=== PATIENT | female | born 1955 | race Caucasian/White ===

== ENCOUNTER 2018-12-30 07:29 | Day surgery (SDC) | payer MEDICAID ==
[2018-12-30] VITALS (11 sets, daily range): BP systolic 107–141; BP diastolic 48–99
[~2018-12-30] VITALS: Ht 172.7 cm; Wt 101.4 kg
[~2018-12-30 07:29] MED LIST: ALBU18HF2 INH; ASPI-845 PO; CLOP75TA33 PO; COMIN IH; DIAZ5TAB PO; DIAZ5TAB4 PO; DILT180C53; FLUO20CA PO; GUAI600T45 PO; HYDR-4353 PO; ISOS60TA4 PO; LISI-600 PO; NITR0.4T SL; PROC5TAB56 PO; SIMV80TA2 PO; SODI104S3 NS; SUMA50TA17 PO; ZOLP5TAB2 PO
[2018-12-30] MEDS ORDERED: diphenhydrAMINE 25mg capsule PO PRN (07:55)
[2018-12-30] MEDS ORDERED: sod bicarbonate 150mEq in D5W 1,150 ML IV ONE (07:55)
[2018-12-30] MEDS ORDERED: METH500T6 PO (08:08)
[2018-12-30] MEDS ORDERED: LURA40TA3 PO (08:08)
[2018-12-30] MEDS ORDERED: ATOR-2 PO (08:08)
[2018-12-30] MEDS ORDERED: FLUT16SP2 BOTHNARES (08:09)
[2018-12-30] MEDS ORDERED: normal saline 1000ml 1,000 ML IV SCH (08:15)
[2018-12-30] MEDS ORDERED: diazepam 5mg tablet PO PRN (08:15)
[2018-12-30] MEDS ORDERED: midazolam 2 mg/2 ml injection ONE ×5 (08:58→10:17)
[2018-12-30] MEDS ORDERED: fentaNYL/PF 50MCG/1 ML 2ML syringe ONE (08:58)
[2018-12-30] MEDS ORDERED: LIDOcaine 1% (10mg/ml)w/preservative injection 20ml MDV ONE (08:59)
[2018-12-30] MEDS ORDERED: iohexol 350 MG/ML 50ML vial IV ONE (08:59)
[2018-12-30] MEDS ORDERED: iohexol 350MG/ML 100ml bottle IV ONE ×2 (08:59→10:02)
[2018-12-30 09:05] LABS: BASOPHILS % (AUTO) 0.3 % (0-1); EOSINOPHILS # (AUTO) 0.2 X10'3 (0-0.9); EOSINOPHILS % (AUTO) 2.2 % (0-6); HEMATOCRIT 44.6 % (35.0-45.0); LYMPHOCYTES # (AUTO) 2.6 X10'3 (1.1-4.8); LYMPHOCYTES % (AUTO) 23.7 % (21-51); MEAN CORPUSCULAR HEMOGLOBIN 24.5 PG (27.0-31.0); MEAN CORPUSCULAR HGB CONC 31.5 g/dL (33.0-36.5); MEAN PLATELET VOLUME 9.6 FL (7.4-10.4); MONOCYTES # (AUTO) 0.7 X10'3 (0-0.9); MONOCYTES % (AUTO) 6.3 % (2-12); NEUTROPHILS # (AUTO) 7.5 X10'3 (1.8-7.7); NEUTROPHILS % (AUTO) 67.5 % (42-75); PLATELET COUNT 251 X10'3 (140-440); RED BLOOD COUNT 5.72 X10'6 (4.20-5.60); RED CELL DISTRIBUTION WIDTH 18.3 % (11.5-14.5); WHITE BLOOD COUNT 11.1 X10'3 (4.5-11.0)
[2018-12-30 09:19] LABS: PROTHROMBIN TIME 10.3 SECONDS (9.0-12.0)
[2018-12-30 09:20] LABS: ANION GAP 10 (8-16); BLOOD UREA NITROGEN 16 MG/DL (7-18); BUN/CREATININE RATIO 18.8 (6.6-38.0); CALCIUM 10.1 MG/DL (8.5-10.1); CHLORIDE 100 MMOL/L (99-107); CREATININE 0.85 MG/DL (0.40-0.90); GLUCOSE 110 MG/DL (70-104); MAGNESIUM 1.7 MG/DL (1.5-2.4); POTASSIUM 4.1 MMOL/L (3.5-5.1); SODIUM 140 MMOL/L (135-145); TOTAL CARBON DIOXIDE 30.2 MMOL/L (24-32); eGFR 68 ML/MIN
[2018-12-30] MEDS ORDERED: heparin 1,000unit/ml 10ml vial 10 ML ONE (09:58)
[2018-12-30] MEDS ORDERED: HYDROmorphone 1 mg/ml syringe ONE (10:20)
[2018-12-30] MEDS ORDERED: nitroGLYCERIN-Tridil 50MG/D5W 250 ML IV ONE (10:26)
[2018-12-30] MEDS ORDERED: nitroGLYCERIN 0.4mg SUBLingual tab SL ONE (10:26)
[2018-12-30] MEDS ORDERED: HYDROcodone/acetaminophen 5mg/325mg tablet PO PRN (11:30)
[2018-12-30] MEDS ORDERED: aspirin 81mg tab.chew PO ONE (11:37)
[2018-12-30] MEDS: HYDROcodone/acetaminophen 10/325mg tab PO PRN ×2 (11:41→15:29)
--- NOTE | 2018-12-30 16:15 | NUR ---
pt ambulated to bedside commode, voided. pt ambulated floor, denies cp, denies sob. will continue to monitor.
--- NOTE | 2018-12-30 16:32 | NUR ---
contacted MD, reported pt states, "my chest pain is back to normal, I always have some but this feels normal". pt vs stable as charted. site is stable. pt ambulated and denies cp and sob. new orders to dc pt at 1700, per MD.
[2018-12-30] MEDS ORDERED: enoxaparin 30mg/0.3ml syringe SUBCUT SCH (20:00)
[2018-12-30] MEDS ORDERED: docusate sod 100mg capsule PO SCH (20:00)
[2018-12-31] MEDS ORDERED: clopidogrel 75mg tablet PO SCH (08:00)
[2018-12-31] MEDS ORDERED: aspirin 81mg tab.chew PO SCH (08:30)
== END 2018-12-30 17:20 | disposition home or self-care (01) ==
LOC: SSTAY O 07:29
PROVIDERS: ATTEND Internal Medicine Cardiovascular Disease
DX: I25.118 Atherosclerotic heart disease of native coronary artery with other forms of angina pectoris (principal); I10 Essential (primary) hypertension; E78.5 Hyperlipidemia, unspecified; E11.9 Type 2 diabetes mellitus without complications; I25.2 Old myocardial infarction; E66.9 Obesity, unspecified; G47.33 Obstructive sleep apnea (adult) (pediatric); J42 Unspecified chronic bronchitis; K21.9 Gastro-esophageal reflux disease without esophagitis; M19.90 Unspecified osteoarthritis, unspecified site; M79.7 Fibromyalgia; M47.819 Spondylosis without myelopathy or radiculopathy, site unspecified; F32.9 Major depressive disorder, single episode, unspecified; F41.8 Other specified anxiety disorders; G43.909 Migraine, unspecified, not intractable, without status migrainosus; Z86.69 Personal history of other diseases of the nervous system and sense organs; Z87.828 Personal history of other (healed) physical injury and trauma; Z86.74 Personal history of sudden cardiac arrest; Z87.891 Personal history of nicotine dependence; Z68.34 Body mass index [BMI] 34.0-34.9, adult; Z87.19 Personal history of other diseases of the digestive system; Z90.12 Acquired absence of left breast and nipple; Z86.14 Personal history of Methicillin resistant Staphylococcus aureus infection; Z91.048 Other nonmedicinal substance allergy status; Z91.040 Latex allergy status; Z91.041 Radiographic dye allergy status; Z86.79 Personal history of other diseases of the circulatory system; Z95.5 Presence of coronary angioplasty implant and graft; Z79.82 Long term (current) use of aspirin; Z79.891 Long term (current) use of opiate analgesic; Z88.3 Allergy status to other anti-infective agents; Z88.2 Allergy status to sulfonamides; Z79.899 Other long term (current) drug therapy; Z88.8 Allergy status to other drugs, medicaments and biological substances; Z98.890 Other specified postprocedural states; Z82.49 Family history of ischemic heart disease and other diseases of the circulatory system; Z82.5 Family history of asthma and other chronic lower respiratory diseases; Z82.0 Family history of epilepsy and other diseases of the nervous system; Z83.3 Family history of diabetes mellitus; Z82.3 Family history of stroke; Z83.6 Family history of other diseases of the respiratory system; Z81.8 Family history of other mental and behavioral disorders
CPT/HCPCS: 36415; 80048; 82948; 83735; 85025; 85610; 92920; 93005; 93458; 99152; 99153; A6257; C1760; J1170; J1644; J2001; J2250; J3010; J7030; Q0163; Q9967; A4620; C1725; C1769; C1894; C9607; J1650; J3490

== ENCOUNTER 2021-08-23 11:18 | Emergency (ER) | payer MEDICAID ==
[~2021-08-23] VITALS: Ht 172.7 cm; Wt 87.3 kg
[~2021-08-23 11:18] MED LIST changes: +ATOR-2 PO; -DIAZ5TAB PO; +FLUT16SP2 BOTHNARES; -GUAI600T45 PO; -ISOS60TA4 PO; +ISOS60TA71 PO; -LISI-600 PO; +LISI20TA28 PO; +LURA40TA3 PO; +METH-797 PO; -SIMV80TA2 PO; -SODI104S3 NS; -ZOLP5TAB2 PO
[2021-08-23 11:32] VITALS: BP 129/82
[2021-08-23] MEDS ORDERED: LIDOcaine 1% W/epiNEPHrine 1:200,000 10ml vial IJ ONE (12:00)
[2021-08-23] MEDS ORDERED: DOXY100C76 PO (12:10)
[2021-08-23] MEDS ORDERED: CEPH250T PO (12:10)
[2021-08-23] MEDS ORDERED: FLUC150T PO (12:19)
== END 2021-08-23 12:43 | disposition home or self-care (01) ==
LOC: ER 11:19
DX: L02.411 Cutaneous abscess of right axilla (principal); G43.909 Migraine, unspecified, not intractable, without status migrainosus; I11.9 Hypertensive heart disease without heart failure; J44.1 Chronic obstructive pulmonary disease with (acute) exacerbation; F41.9 Anxiety disorder, unspecified; G89.29 Other chronic pain; Z88.0 Allergy status to penicillin; Z88.2 Allergy status to sulfonamides; Z88.8 Allergy status to other drugs, medicaments and biological substances; Z91.040 Latex allergy status; Z88.5 Allergy status to narcotic agent
CPT/HCPCS: 10060; 99283

== ENCOUNTER 2022-01-31 14:42 | Emergency (ER) | payer MEDICAID ==
[~2022-01-31] VITALS: Ht 172.7 cm; Wt 90.9 kg
[~2022-01-31 14:42] MED LIST changes: +LURA40TA2 PO; -LURA40TA3 PO
[2022-01-31] MEDS ORDERED: CEPH250T PO (15:20)
--- NOTE | 2022-01-31 15:50 | NUR ---
Reminded PA for d/c instructions
[2022-01-31 16:04] VITALS: BP 135/60
== END 2022-01-31 16:06 | disposition home or self-care (01) ==
LOC: ER 14:43
DX: L03.116 Cellulitis of left lower limb (principal); G43.909 Migraine, unspecified, not intractable, without status migrainosus; I10 Essential (primary) hypertension; J44.9 Chronic obstructive pulmonary disease, unspecified; G89.29 Other chronic pain; F41.9 Anxiety disorder, unspecified; Z98.890 Other specified postprocedural states; Z95.1 Presence of aortocoronary bypass graft; Z88.2 Allergy status to sulfonamides; Z91.040 Latex allergy status; Z88.8 Allergy status to other drugs, medicaments and biological substances; Z79.82 Long term (current) use of aspirin; Z79.2 Long term (current) use of antibiotics; Z79.899 Other long term (current) drug therapy
CPT/HCPCS: 73590; 99284

== ENCOUNTER 2022-07-25 17:06 | Emergency (ER) | payer MEDICAID ==
[~2022-07-25] VITALS: Ht 174 cm; Wt 94.0 kg
[2022-07-25 17:41] VITALS: BP 167/91
[2022-07-25] MEDS ORDERED: ACET-3068 PO (19:39)
[2022-07-25] MEDS ORDERED: PROC-8 PO (19:39)
[2022-07-25] MEDS ORDERED: HYDROcodone/acetaminophen 10/325mg tab PO ONE (20:15)
== END 2022-07-25 20:17 | disposition home or self-care (01) ==
LOC: ER 17:08
DX: K08.89 Other specified disorders of teeth and supporting structures (principal); G43.909 Migraine, unspecified, not intractable, without status migrainosus; I11.9 Hypertensive heart disease without heart failure; J44.9 Chronic obstructive pulmonary disease, unspecified; E11.9 Type 2 diabetes mellitus without complications; G89.29 Other chronic pain; F41.9 Anxiety disorder, unspecified; Z88.2 Allergy status to sulfonamides; Z79.899 Other long term (current) drug therapy; Z88.8 Allergy status to other drugs, medicaments and biological substances; Z91.040 Latex allergy status
CPT/HCPCS: 99283

== ENCOUNTER 2022-07-31 17:05 | Emergency (ER) | payer MEDICAID ==
[~2022-07-31] VITALS: Ht 174 cm; Wt 94.1 kg
[~2022-07-31 17:05] MED LIST changes: +ACET-3068 PO; +PROC-8 PO
[2022-07-31 17:33] VITALS: BP 171/74
[2022-07-31] MEDS ORDERED: acetaminophen w/codeine (30MG) #3 tablet PO ONE (19:55)
== END 2022-07-31 21:05 | disposition home or self-care (01) ==
LOC: ER 17:06
DX: K08.89 Other specified disorders of teeth and supporting structures (principal); G43.909 Migraine, unspecified, not intractable, without status migrainosus; I25.10 Atherosclerotic heart disease of native coronary artery without angina pectoris; I10 Essential (primary) hypertension; I25.2 Old myocardial infarction; J44.9 Chronic obstructive pulmonary disease, unspecified; E11.9 Type 2 diabetes mellitus without complications; G89.29 Other chronic pain; F41.9 Anxiety disorder, unspecified; Z98.890 Other specified postprocedural states; Z88.2 Allergy status to sulfonamides; Z88.8 Allergy status to other drugs, medicaments and biological substances; Z91.040 Latex allergy status; Z79.82 Long term (current) use of aspirin; Z79.899 Other long term (current) drug therapy
CPT/HCPCS: 93005; 99283

== ENCOUNTER 2022-12-24 02:21 | Inpatient (IN) | payer MEDICAID ==
[~2022-12-24] VITALS: Ht 172.7 cm; Wt 90.0 kg
[~2022-12-24 02:21] MED LIST changes: -ACET-3068 PO
[2022-12-24] MEDS ORDERED: TETanus/Pertussis (Acell)/Diphther VAC/PF (Tdap-Adult) 0.5ml syringe IMVAC ONE (02:40)
[2022-12-24] MEDS ORDERED: acetaminophen 325mg tablet PO ONE (03:00)
[2022-12-24 03:32] LABS: BASOPHILS % (AUTO) 0.5 % (0-1); EOSINOPHILS # (AUTO) 0.1 X10'3 (0-0.9); EOSINOPHILS % (AUTO) 1.4 % (0-6); HEMOGLOBIN 10.5 g/dl (12.0-16.0); LYMPHOCYTES # (AUTO) 2.1 X10'3 (1.1-4.8); LYMPHOCYTES % (AUTO) 24.1 % (21-51); MEAN CORPUSCULAR HEMOGLOBIN 24.6 PG (27.0-31.0); MEAN CORPUSCULAR HGB CONC 31.7 g/dL (33.0-36.5); MEAN CORPUSCULAR VOLUME 77.4 FL (78-98); MEAN PLATELET VOLUME 8.4 FL (7.4-10.4); MONOCYTES # (AUTO) 0.7 X10'3 (0-0.9); MONOCYTES % (AUTO) 7.9 % (2-12); NEUTROPHILS # (AUTO) 5.7 X10'3 (1.8-7.7); NEUTROPHILS % (AUTO) 66.1 % (42-75); PLATELET COUNT 222 X10'3 (140-440); RED BLOOD COUNT 4.27 X10'6 (4.20-5.60); RED CELL DISTRIBUTION WIDTH 16.8 % (11.5-14.5); WHITE BLOOD COUNT 8.6 X10'3 (4.5-11.0)
[2022-12-24] MEDS ORDERED: oxyCODONE SR 10mg (sust. release) tab PO ONE (03:35)
[2022-12-24] MEDS ORDERED: oxyCODONE IR 5mg (immed. release) tablet PO ONE (03:40)
[2022-12-24 03:43] LABS: ALANINE AMINOTRANSFERASE 17 U/L (12-78); ALBUMIN 3.2 G/DL (3.4-5.0); ALKALINE PHOSPHATASE 84 IU/L (46-116); ANION GAP 8 (8-16); ASPARTATE AMINO TRANSFERASE 16 U/L (10-37); BILIRUBIN,TOTAL 0.3 MG/DL (0.1-1.0); BLOOD UREA NITROGEN 10 MG/DL (7-18); BUN/CREATININE RATIO 12.2 (6.6-38.0); CALCIUM 8.8 MG/DL (8.5-10.1); CHLORIDE 99 MMOL/L (99-107); CREATININE 0.82 MG/DL (0.40-0.90); GLUCOSE 105 MG/DL (70-104); POTASSIUM 3.9 MMOL/L (3.5-5.1); SODIUM 134 MMOL/L (135-145); TOTAL CARBON DIOXIDE 27.2 MMOL/L (24-32); TOTAL PROTEIN 6.3 G/DL (6.4-8.2); eGFR 70 ML/MIN
[2022-12-24 03:51] LABS: MAGNESIUM 1.7 MG/DL (1.5-2.4)
[2022-12-24] MEDS ORDERED: PERFLUTREN PROTEIN-A MICROSPHR (Optison) 0.22 MG/ML 3ML VIAL IV PRN (04:55)
[2022-12-24] MEDS ORDERED: potassium Cl 40MEQ/1/2NS 520ml 520 ML IV PRN (04:55)
[2022-12-24] MEDS ORDERED: MESSAGE TO PHARMACY PO ONE (04:55)
[2022-12-24] MEDS ORDERED: normal saline 1000ml 1,000 ML IV SCH (04:55)
[2022-12-24] MEDS ORDERED: mag hydrox/Alum hydrox/simeth 30ml oral suspension PO PRN (04:55)
[2022-12-24] MEDS ORDERED: DEXTROSE 15 GM of carb/4 tabs (each vial/BOTTLE has 4 tablets) PO PRN ×2 (04:55)
[2022-12-24] MEDS ORDERED: insulin Lispro (HumaLOG) vial - multi-dose SQ SCH (04:55)
[2022-12-24] MEDS ORDERED: magnesium 4gm in 100ml NS 100 ML IV PRN (04:55)
[2022-12-24] MEDS ORDERED: ondansetron/PF 4mg/2ml inj IV PRN (04:55)
[2022-12-24] MEDS ORDERED: magnesium hydroxide 30ml (MOM) UD suspension PO PRN (04:55)
[2022-12-24] MEDS ORDERED: dextrose 50%-water 50ml dispensing syringe IV PRN ×2 (04:55)
[2022-12-24] MEDS ORDERED: HYDROcodone/acetaminophen 5mg/325mg tablet PO PRN (04:55)
[2022-12-24] MEDS ORDERED: magnesium Cl slow-release 64mg tablet PO PRN (04:55)
[2022-12-24] MEDS ORDERED: potassium Cl 20 mEq SR tablet PO PRN ×2 (04:55)
[2022-12-24] MEDS ORDERED: acetaminophen 325mg tablet PO PRN ×2 (04:55)
[2022-12-24] MEDS ORDERED: glucagon, human recombinant 1mg kit SUBCUT PRN (04:55)
[2022-12-24 05:34] LABS: CLARITY,URINE CLEAR (Clear); COLOR,URINE YELLOW (Yellow); GLUCOSE, URINE NEGATIVE (Neg); KETONES,URINE NEGATIVE (Neg); LEUKOCYTE ESTERASE ,URINE NEGATIVE (Neg); NITRITES, URINE NEGATIVE (Neg); OCCULT BLOOD,URINE NEGATIVE (Neg); PH,URINE 5.5 (4.8-8.0); PROTEIN,URINE NEGATIVE (Neg); UROBILINOGEN,URINE 0.2 E.U/dL (0.2-1.0)
[2022-12-24 05:39] LABS: UA COLLECTION TYPE CLN CATCH MIDSTREAM
[2022-12-24 05:44] LABS: CHOL/HDL RATIO 2.3 (0.00-4.99); CHOLESTEROL 91 MG/DL (0-200); HDL CHOLESTEROL 40 MG/DL (35-60); LDL CHOLESTEROL 40 MG/DL (50-100); PHOSPHORUS 3.8 MG/DL (2.3-4.5); POTASSIUM 4.4 MMOL/L (3.5-5.1); TRIGLYCERIDES 83 MG/DL (20-135)
[2022-12-24] MEDS ORDERED: LORazepam 2 mg/ml vial IV PRN (05:55)
--- NOTE | 2022-12-24 06:46 | NUR ---
Patient sitting in gurney with HOB elevated. Patient requested pillow for repositioning, assisted patient with repostioning, patient has no current needs at this time. Call light within reach, patient educated to call for any needs.
[2022-12-24 06:47] VITALS: BP 107/52
[2022-12-24] MEDS ORDERED: K and/or MAG REPLACEMENT MC SCH (08:00)
[2022-12-24] MEDS ORDERED: docusate sod 100mg capsule PO SCH (08:00)
[2022-12-24] MEDS ORDERED: heparin, porcine 5000 units/ml vial SQ SCH (08:00)
[2022-12-24] MEDS ORDERED: aspirin 81mg tab.chew PO SCH (08:30)
--- NOTE | 2022-12-24 09:02 | NUR ---
Patient desires to leave AMA, I talked with admitting doctor DR. FERREIRA, he is aware patient is leaving AMA. I called [facility] support person to come and pick her up.
[2022-12-24] MEDS ORDERED: insulin glargine (Lantus) pen - multi-dose SQ SCH (21:00)
== END 2022-12-24 12:59 | disposition left against medical advice (07) | DRG 198 ==
LOC: ER 02:22 → ED HOLD 04:59 → UNDOADMIN 05:02 → ED HOLD 05:02 → UNDODISIN 12:59
PROVIDERS: ADMIT Family Medicine; ATTEND Family Medicine
PROC: 3E0234Z Introduction of Serum, Toxoid and Vaccine into Muscle, Percutaneous Approach (ICD-10-PCS; principal; 2022-12-24)
DX: I25.119 Atherosclerotic heart disease of native coronary artery with unspecified angina pectoris (principal); E87.1 Hypo-osmolality and hyponatremia; I95.9 Hypotension, unspecified; D50.9 Iron deficiency anemia, unspecified; E03.9 Hypothyroidism, unspecified; E11.9 Type 2 diabetes mellitus without complications; E66.9 Obesity, unspecified; Z66 Do not resuscitate; E78.00 Pure hypercholesterolemia, unspecified; F17.210 Nicotine dependence, cigarettes, uncomplicated; R55 Syncope and collapse; F41.9 Anxiety disorder, unspecified; R47.81 Slurred speech; G43.909 Migraine, unspecified, not intractable, without status migrainosus; G89.29 Other chronic pain; I10 Essential (primary) hypertension; M54.9 Dorsalgia, unspecified; F43.10 Post-traumatic stress disorder, unspecified; J44.9 Chronic obstructive pulmonary disease, unspecified; M79.7 Fibromyalgia; Z53.29 Procedure and treatment not carried out because of patient's decision for other reasons; I25.2 Old myocardial infarction; Z23 Encounter for immunization; Z63.72 Alcoholism and drug addiction in family; Z83.3 Family history of diabetes mellitus; Z88.2 Allergy status to sulfonamides; Z95.5 Presence of coronary angioplasty implant and graft; Z88.8 Allergy status to other drugs, medicaments and biological substances; Z82.49 Family history of ischemic heart disease and other diseases of the circulatory system; Z79.899 Other long term (current) drug therapy; Z68.30 Body mass index [BMI] 30.0-30.9, adult
CPT/HCPCS: 36415; 71045; 80053; 80061; 81003; 83036; 83735; 83880; 84100; 84132; 84443; 84484; 85025; 85610; 90715; 93306; 99285; G0378; J1815; J7030

== ENCOUNTER 2024-02-06 16:44 | Emergency (ER) | payer MEDICAID, SELFPAY ==
[~2024-02-06] VITALS: Ht 172.7 cm; Wt 100.0 kg
[2024-02-06 17:25] VITALS: BP 197/83; PULSE 94; RESP 18; TEMP 98.2; O2SAT 98
[2024-02-06] MEDS ORDERED: METH-797 PO (21:08)
== END 2024-02-06 21:20 | disposition home or self-care (01) ==
LOC: ER 16:45
DX: S30.0XXA Contusion of lower back and pelvis, initial encounter (principal); G43.909 Migraine, unspecified, not intractable, without status migrainosus; E78.00 Pure hypercholesterolemia, unspecified; I10 Essential (primary) hypertension; J44.9 Chronic obstructive pulmonary disease, unspecified; E11.9 Type 2 diabetes mellitus without complications; E03.9 Hypothyroidism, unspecified; Z88.2 Allergy status to sulfonamides; Z88.8 Allergy status to other drugs, medicaments and biological substances; Z91.041 Radiographic dye allergy status; Z91.040 Latex allergy status; Z79.82 Long term (current) use of aspirin; Z79.899 Other long term (current) drug therapy; Z98.890 Other specified postprocedural states; W19.XXXA Unspecified fall, initial encounter; Y93.89 Activity, other specified; Y92.89 Other specified places as the place of occurrence of the external cause; Y99.8 Other external cause status
CPT/HCPCS: 72100; 72220; 99284